=== PATIENT | female | born 1975 | race Caucasian/White ===

== ENCOUNTER 2021-04-02 12:16 | Observation (INO) ==
[2021-04-02 13:26] LABS: Basophils # 0.1 K/mcL (0.0-0.2); Basophils % 1.1 %; Eosinophils # 0.2 K/mcL (0.0-0.6); Eosinophils % 3.9 %; Hematocrit 41.6 % (35.3-44.9); Hemoglobin 14.2 g/dL (11.5-15.4); Immature Granulocytes % 0.4 % (0-4); Lymphocytes # 1.6 K/mcL (0.6-4.6); Lymphocytes % 27.8 %; Mean Corpuscular HGB Conc 34.1 g/dL (31.6-35.5); Mean Corpuscular Hemoglobin 27.3 pg (28.0-33.3); Mean Platelet Volume 9.2 fL (9.4-12.4); Monocytes # 0.3 K/mcL (0.0-1.3); Monocytes % 4.8 %; Neutrophils # 3.5 K/mcL (1.6-8.9); Platelet Count 239 K/mcL (140-400); Red Cell Distribution Width 13.4 % (11.5-14.5); White Blood Count 5.7 K/mcL (4.3-11.1)
[2021-04-02 13:41] LABS: BUN/Creatinine Ratio 14 (6-26); Blood Urea Nitrogen 9 mg/dL (6-20); Calcium 9.3 mg/dL (8.6-10.3); Carbon Dioxide 26 mEq/L (23-29); Chloride 104 mEq/L (98-107); Glucose 95 mg/dL (70-105); Osmolality,Calculated 284 (280-300); Sodium 138 mEq/L (136-145); Troponin I < 0.03 ng/mL (< 0.04); eGFR For African Americans > 60 (> 60); eGFR For Non-African Americans > 60 (> 60)
[2021-04-02] MEDS ORDERED: Isovue-370 500 ML BOTTLE IVP ONE (15:50)
[2021-04-02] MEDS ORDERED: 0.9 % Sodium Chloride 1,000 ML IV ONE (15:51)
[2021-04-02] MEDS ORDERED: Nitroglycerin 0.4 MG TAB.SUBL SL ONE (17:41)
[2021-04-02] MEDS ORDERED: MOM Conc 10 ML UD.LIQ PO PRN (17:57)
[2021-04-02] MEDS ORDERED: Ondansetron ODT 4 MG TAB.RAPDIS SL PRN (17:57)
[2021-04-02] MEDS ORDERED: Mag Hydrox/Al Hydrox/Simeth 30 ML UDC PO PRN (17:57)
[2021-04-02] MEDS ORDERED: Melatonin 3 MG TABLET PO PRN (17:57)
[2021-04-02] MEDS ORDERED: Naloxone 0.4 MG/ML INJ IVP PRN (17:57)
[2021-04-02] MEDS ORDERED: Perflutren Lipid Microsphere 1.3 ML in 0.9 % Sodium Chloride 8.7 ML IVP PRN (17:59)
[2021-04-02] MEDS ORDERED: Famotidine 20 MG TABLET PO PRN (18:00)
[2021-04-02] MEDS ORDERED: Morphine Sulfate 2 MG/ML SYRINGE IVP PRN (18:01)
[2021-04-02] MEDS ORDERED: Nitroglycerin 0.4 MG TAB.SUBL SL PRN (18:01)
[2021-04-03] MEDS: Amoxicillin 500 MG CAPSULE PO SCH ×4 (00:16→23:13)
[2021-04-03] MEDS ORDERED: Acetaminophen 325 MG TABLET PO ONE (03:31)
[2021-04-03] MEDS: *HR* Enoxaparin 40 MG/0.4 ML SYRINGE SQ SCH ×2 (05:43→05:47)
[2021-04-03] MEDS ORDERED: Regadenoson 0.4 MG/5 ML SYRINGE IVP ONE (06:33)
[2021-04-03 06:57] LABS: Hematocrit 38.8 % (35.3-44.9); Hemoglobin 12.9 g/dL (11.5-15.4); Mean Corpuscular HGB Conc 33.2 g/dL (31.6-35.5); Mean Corpuscular Volume 81.2 fL (83.0-100.0); Platelet Count 199 K/mcL (140-400); Red Blood Count 4.78 M/mcL (3.82-4.97); Red Cell Distribution Width 13.4 % (11.5-14.5); White Blood Count 5.2 K/mcL (4.3-11.1)
[2021-04-03 07:19] LABS: Alanine Aminotransferase 15 Units/L (7-52); Albumin 3.8 g/dL (3.5-5.7); Albumin/Globulin Ratio 1.5 (1.1-2.2); Alkaline Phosphatase 61 Units/L (34-104); Aspartate Amino Transferase 13 Units/L (13-39); BUN/Creatinine Ratio 17 (6-26); Bilirubin,Total 0.2 mg/dL (0.3-1.0); Blood Urea Nitrogen 11 mg/dL (6-20); Calcium 8.3 mg/dL (8.6-10.3); Carbon Dioxide 26 mEq/L (23-29); Chloride 105 mEq/L (98-107); Chol/HDL Ratio 7.9 (0-4.9); Cholesterol 212 mg/dL (< 200); Globulin 2.5 g/dL (2.4-3.5); Glucose 101 mg/dL (70-105); HDL Cholesterol 27 mg/dL (40-59); Osmolality,Calculated 286 (280-300); Potassium 3.8 mEq/L (3.5-5.1); Sodium 138 mEq/L (136-145); Total Protein 6.3 g/dL (6.4-8.9); Triglycerides 512 mg/dL (< 150); eGFR For African Americans > 60 (> 60); eGFR For Non-African Americans > 60 (> 60)
[2021-04-03] MEDS: Aspirin 81 MG TAB.CHEW PO SCH (09:22)
[2021-04-03] MEDS ORDERED: Isovue-370 500 ML BOTTLE IVP ONE (12:48)
[2021-04-03] MEDS: Acetaminophen 325 MG TABLET PO PRN ×2 (13:15→21:50)
[2021-04-03] MEDS ORDERED: IVABRADINE HCL 7.5 MG TABLET PO ONE (13:35)
[2021-04-03] MEDS ORDERED: *HR* Metoprolol 5 MG/5 ML VIAL IVP STA (14:57)
[2021-04-03] MEDS ORDERED: diazePAM 5 MG TABLET PO PRN (17:57)
[2021-04-04] MEDS: *HR* Enoxaparin 40 MG/0.4 ML SYRINGE SQ SCH (05:22)
[2021-04-04 07:41] VITALS: BP 141/86
[2021-04-04] MEDS: Amoxicillin 500 MG CAPSULE PO SCH (08:36)
[2021-04-04] MEDS: Aspirin 81 MG TAB.CHEW PO SCH (08:36)
[2021-04-04] MEDS: Acetaminophen 325 MG TABLET PO PRN (08:37)
[2021-04-04] MEDS ORDERED: Metoprolol XL (24 HR) Succ 50 MG TAB.ER.24H PO SCH (09:00)
== END 2021-04-04 10:17 | disposition home or self-care (01) ==
LOC: EMEROOARM 12:16 → 3BNU 12:16 → SUATTDRO 17:53 → 3BNU 19:05
PROVIDERS: ADMIT Internal Medicine; ATTEND Nurse Practitioner